=== PATIENT | female | born 1960 | race Two or more races ===

== ENCOUNTER 2020-10-15 09:30 | Inpatient (IN) | payer OTHER ==
[~2020-10-15] VITALS: Ht 162.6 cm; Wt 81.6 kg
[~2020-10-15 09:30] MED LIST: CLONAZEPAM0.125 MG PO; LODINE XL500 MG PO
[2020-10-23] MEDS ORDERED: ESZOPICLONE2 MG (08:16)
[2020-10-23] MEDS ORDERED: DICLOFENAC SOD100 GM (08:16)
[2020-10-23] MEDS ORDERED: CLONAZEPAM1 MG (08:16)
[2020-10-23] MEDS ORDERED: AMOX-CLAV 875-1 EAC1 PO (10:10)
[2020-10-23] MEDS ORDERED: DIAZEPAM5 MG PO (10:10)
[2020-10-23] MEDS ORDERED: MEDROLPACK PO (10:10)
[2020-10-23] MEDS ORDERED: PERCOCET 5-3251 EACH PO (10:10)
[2020-10-23] MEDS ORDERED: COLACE100 MG PO (10:10)
[2020-10-23] MEDS ORDERED: ACETAMINOPHEN-1 EAC2 PO (10:15)
== END 2020-10-24 13:53 | disposition home or self-care (01) | DRG 473 ==
LOC: PED 10-23 05:30 → O/R 10-23 05:30 → SURH 10-23 09:30 → PED 10-23 13:31
PROVIDERS: ADMIT Orthopaedic Surgery Orthopaedic Surgery of the Spine; ATTEND Orthopaedic Surgery Orthopaedic Surgery of the Spine
PROC: XRG10F3 Fusion of Cervical Vertebral Joint using Radiolucent Porous Interbody Fusion Device, Open Approach, New Technology Group 3 (ICD-10-PCS; 2020-10-23)
PROC: 07DS3ZZ Extraction of Vertebral Bone Marrow, Percutaneous Approach (ICD-10-PCS; 2020-10-23)
PROC: 0RT30ZZ Resection of Cervical Vertebral Disc, Open Approach (ICD-10-PCS; principal; 2020-10-23 10:45)
DX: M50.023 Cervical disc disorder at C6-C7 level with myelopathy (principal); M48.02 Spinal stenosis, cervical region

== ENCOUNTER 2022-07-15 07:15 | Inpatient (IN) | payer OTHER ==
[~2022-07-15] VITALS: Ht 162.6 cm; Wt 79.4 kg
[~2022-07-15 07:15] MED LIST changes: +ACETAMINOPHEN-1 EAC2 PO; +AMOX-CLAV 875-1 EAC1 PO; +CLONAZEPAM1 MG; +COLACE100 MG PO; +DIAZEPAM5 MG PO; +DICLOFENAC SOD100 GM; +ESZOPICLONE2 MG; +MEDROLPACK PO; +PERCOCET 5-3251 EACH PO
[2022-07-21] MEDS ORDERED: GABAPENTIN600 MG (16:08)
[2022-07-21] MEDS ORDERED: BUPROPION XL150 MG (16:08)
[2022-07-21] MEDS ORDERED: METHOTREXATE2.5 MG (16:08)
[2022-07-21] MEDS ORDERED: RAYOS5 MG (16:08)
[2022-07-21] MEDS ORDERED: SERTRALINE HCL50 MG (16:08)
[2022-07-21] MEDS ORDERED: COLACE100 MG PO (16:10)
[2022-07-21] MEDS ORDERED: NEURONTIN800 MG PO (16:10)
[2022-07-21] MEDS ORDERED: AMOX-CLAV 875-1 EACH PO (16:11)
[2022-07-21] MEDS ORDERED: MEDROLPACK PO (16:11)
[2022-07-21] MEDS ORDERED: PERCOCET 5-3251 EACH PO (16:11)
[2022-07-21] MEDS ORDERED: ZOFRAN8 MG PO (16:11)
== END 2022-07-23 11:46 | disposition home or self-care (01) | DRG 455 ==
LOC: SURG 07-21 07:15 → O/R 07-21 07:21 → PED 07-21 07:21 → SURG 07-21 10:45 → PED 07-21 23:59
PROVIDERS: ADMIT Orthopaedic Surgery Orthopaedic Surgery of the Spine; ATTEND Orthopaedic Surgery Orthopaedic Surgery of the Spine
PROC: 0SG0071 Fusion of Lumbar Vertebral Joint with Autologous Tissue Substitute, Posterior Approach, Posterior Column, Open Approach (ICD-10-PCS; 2022-07-21)
PROC: XRGD0R7 Fusion of Lumbosacral Joint using Custom-Made Anatomically Designed Interbody Fusion Device, Open Approach, New Technology Group 7 (ICD-10-PCS; 2022-07-21)
PROC: 0SG3071 Fusion of Lumbosacral Joint with Autologous Tissue Substitute, Posterior Approach, Posterior Column, Open Approach (ICD-10-PCS; 2022-07-21)
PROC: 0ST20ZZ Resection of Lumbar Vertebral Disc, Open Approach (ICD-10-PCS; 2022-07-21)
PROC: 0ST40ZZ Resection of Lumbosacral Disc, Open Approach (ICD-10-PCS; 2022-07-21)
PROC: 0QB30ZZ Excision of Left Pelvic Bone, Open Approach (ICD-10-PCS; 2022-07-21)
PROC: 07DR0ZZ Extraction of Iliac Bone Marrow, Open Approach (ICD-10-PCS; 2022-07-21)
PROC: XRGB0R7 Fusion of Lumbar Vertebral Joint using Custom-Made Anatomically Designed Interbody Fusion Device, Open Approach, New Technology Group 7 (ICD-10-PCS; principal; 2022-07-21 10:45)
DX: M48.062 Spinal stenosis, lumbar region with neurogenic claudication (principal); M51.36 Other intervertebral disc degeneration, lumbar region; M43.17 Spondylolisthesis, lumbosacral region; M48.07 Spinal stenosis, lumbosacral region; M54.17 Radiculopathy, lumbosacral region; M06.9 Rheumatoid arthritis, unspecified